=== PATIENT | male | born 1980 | race Caucasian/White ===

== ENCOUNTER 2016-10-03 12:19 | Emergency (ER) | payer SELFPAY ==
[~2016-10-03] VITALS: Ht 167.6 cm; Wt 54.4 kg
[2016-10-03] MEDS ORDERED: KETOROLAC 30 MG/ML VIAL IVP STA (12:55)
[2016-10-03] MEDS ORDERED: NS IV 1000 ML 1,000 ML IV STA (12:55)
[2016-10-03] MEDS ORDERED: fentaNYL INJECTION 100 MCG/2 ML AMP IVP STA (12:55)
[2016-10-03] MEDS ORDERED: ONDANSETRON 4 MG/2 ML (SDV) Z0FRAN IVP ONE (13:00)
[2016-10-03 13:07] LABS: KETONES,URINE 3+ (NEGATIVE); LEUKOCYTE ESTERASE ,URINE 1+ (NEGATIVE); NITRITE,URINE NEGATIVE (NEGATIVE); PH,URINE 5 (5-9); PROTEIN,URINE 2+ (NEGATIVE); UROBILINOGEN,URINE 1 MG/DL (NORMAL)
--- NOTE | 2016-10-03 13:13 | ED Abdominal Pain ---
General Chief Complaint: Abdominal/GI Problems Stated Complaint: L SIDE ABD PAIN Nursing Triage Note: PT STATES LLQ ABD PAIN SINCE THIS AM. STATES HE HAD TO BMs YESTERDAY, DENIES CONSITPATION OR DIARRHEA Sepsis Screen: No Definite Risk Source of Information: Patient Exam Limitations: No Limitations History of Present Illness Time Seen By Provider: 12:50 Initial Comments Here with report of lower abdominal pain that is left lower quadrant to suprapubic area. Onset this morning. Fairly significant and persistent since. He has not taken anything for the pain. Denies difficulty with bowel movement or urination. Denies blood in urine or stool. Timing/Duration: 4-6 Hours Severity/Quality: Moderate, Severe Location: LLQ, Suprapubic Radiation: No Radiation Activities at Onset: None Modifying Factors: Worsens With Movement, Improves With Resting Associated Symptoms: No Back Pain, No Chest Pain, No Fever/Chills, No Fatigue, Nausea/Vomiting, No Rash, No Shortness of Air, No Swelling/Mass in Abdomen, No Weakness Allergies and Home Medications Allergies Coded Allergies: No Known Drug Allergies (Unverified , 10/03/16) Review of Systems Constitutional: see HPI EENTM: No Symptoms Reported Respiratory: No Symptoms Reported Cardiovascular: No Symptoms Reported Gastrointestinal: See HPI, Nausea, Vomiting Genitourinary: No Symptoms Reported Musculoskeletal: no symptoms reported All Other Systems Reviewed Negative Unless Noted: Yes Past Qokltvc-Jpwcox-Minbce Hx Patient Social History Alcohol Use: Denies Use Recreational Drug Use: No Smoking Status: Light Tobacco Smoker Type Used: Smokeless Tobacco Recent Foreign Travel: No Contact w/Someone Who Travel: No Recent Infectious Disease Expo: No Recent Hopitalizations: No Seasonal Allergies Seasonal Allergies: No Surgeries HX Surgeries: No Respiratory Hx Respiratory Disorders: No Cardiovascular Hx Cardiac Disorders: No Neurological Hx Neurological Disorders: No Gastrointestinal Hx Gastrointestinal Disorders: No Musculoskeletal Hx Musculoskeletal Disorders: Yes Musculoskeletal Disorders: Scoliosis Psychosocial Hx Psychiatric Problems: Yes Behavioral Health Disorders: Bipolar Reviewed Nursing Assessment Reviewed/Agree w Nursing PMH: Yes Family Medical History Significant Family History: No Pertinent Family Hx Physical Exam Vital Signs VS - Last 72 Hours, by Label 10/03/16 12:43 Temp 97.9 Pulse 52 Resp 18 B/P (MAP) 150/101 Capillary Refill : Less Than 3 Seconds General Appearance: WD/WN, no apparent distress HEENT: PERRL/EOMI, pharynx normal Neck: full range of motion, supple Respiratory: lungs clear, normal breath sounds Cardiovascular: regular rate, rhythm, no murmur Gastrointestinal: soft, tenderness (left lower quadrant and suprapubic) Extremities: non-tender, normal inspection Back: normal inspection, no CVA tenderness, no vertebral tenderness Neurologic/Psychiatric: alert, oriented x 3 Skin: normal color, warm/dry Progress/Results/Core Measures Results/Orders Lab Results Laboratory Tests Test 10/03/16 12:59 10/03/16 13:09 Range/Units Urine Color YELLOW Urine Clarity CLEAR Urine pH 5 5-9 Urine Specific [place] 1.030 H 1.016-1.022 Urine Protein 2+ H NEGATIVE Urine Glucose (UA) NEGATIVE NEGATIVE Urine Ketones 3+ H NEGATIVE Urine Nitrite NEGATIVE NEGATIVE Urine Bilirubin 1+ H NEGATIVE Urine Urobilinogen 1 NORMAL MG/DL Urine Leukocyte Esterase 1+ H NEGATIVE Urine RBC (Auto) 4+ H NEGATIVE Urine RBC 0-2 /HPF Urine WBC 2-5 /HPF Urine Squamous Epithelial Cells NONE /HPF Urine Crystals NONE /LPF Urine Bacteria TRACE /HPF Urine Casts NONE /LPF Urine Mucus LARGE H /LPF Urine Culture Indicated NO White Blood Count 17.0 H 4.3-11.0 10^3/uL Red Blood Count 4.44 4.35-5.85 10^6/uL Hemoglobin 13.3 13.3-17.7 G/DL Hematocrit 40 40-54 % Mean Corpuscular Volume 90 80-99 FL Mean Corpuscular Hemoglobin 30 25-34 PG Mean Corpuscular Hemoglobin Concent 33 32-36 G/DL Red Cell Distribution Width 12.8 10.0-14.5 % Platelet Count 322 130-400 10^3/uL Mean Platelet Volume 10.3 7.4-10.4 FL Neutrophils (%) (Auto) 91 H 42-75 % Lymphocytes (%) (Auto) 5 L 12-44 % Monocytes (%) (Auto) 5 0-12 % Eosinophils (%) (Auto) 0 0-10 % Basophils (%) (Auto) 0 0-10 % Neutrophils # (Auto) 15.5 H 1.8-7.8 X 10^3 Lymphocytes # (Auto) 0.8 L 1.0-4.0 X 10^3 Monocytes # (Auto) 0.8 0.0-1.0 X 10^3 Eosinophils # (Auto) 0.0 0.0-0.3 10^3/uL Basophils # (Auto) 0.0 0.0-0.1 10^3/uL Neutrophils % (Manual) 94 % Lymphocytes % (Manual) 3 % Monocytes % (Manual) 3 % Blood Morphology Comment NORMAL Sodium Level 141 135-145 MMOL/L Potassium Level 3.8 3.6-5.0 MMOL/L Chloride Level 105 98-107 MMOL/L Carbon Dioxide Level 24 21-32 MMOL/L Anion Gap 12 5-14 MMOL/L Blood Urea Nitrogen 14 7-18 MG/DL Creatinine 1.10 0.60-1.30 MG/DL Estimat Glomerular Filtration Rate > 60 BUN/Creatinine Ratio 13 Glucose Level 125 H 70-105 MG/DL Calcium Level 9.7 8.5-10.1 MG/DL Total Bilirubin 0.9 0.1-1.0 MG/DL Aspartate Amino Transf (AST/SGOT) 17 5-34 U/L Alanine Aminotransferase (ALT/SGPT) 9 0-55 U/L Alkaline Phosphatase 67 40-136 U/L Total Protein 8.0 6.4-8.2 GM/DL Albumin 4.7 H 3.2-4.5 GM/DL My Orders Orders - REMINGTON QUICK MD Cbc With Automated Diff (10/03/16 12:55) Comprehensive Metabolic Panel (10/03/16 12:55) Ua Culture If Indicated (10/03/16 12:55) Ondansetron Injection (Zofran Injectio (10/03/16 13:00) Ns Iv 1000 Ml (Sodium Chloride 0.9%) (10/03/16 12:55) Saline Lock/Iv-Start (10/03/16 12:55) Fentanyl Injection (Sublimaze Injection (10/03/16 12:55) Ketorolac Injection (Toradol Injection) (10/03/16 12:55) Manual Differential (10/03/16 13:09) Ct Abd/Pelv W (Appendicitis) (10/03/16 13:42) Ns Iv 1000 Ml (Sodium Chloride 0.9%) (10/03/16 13:43) Iohexol Injection (Omnipaque 350 Mg/Ml 1 (10/03/16 14:00) Ns (Ivpb) (Sodium Chloride 0.9% Ivpb Bag (10/03/16 14:00) Medications Given in ED Current Medications Medications Dose Ordered Sig/Jose Route Start Time Stop Time Status Last Admin Dose Admin Iohexol 100 ml ONCE ONCE IV 10/03/16 14:00 10/03/16 14:01 DC 10/03/16 13:53 100 ML Ondansetron HCl 4 mg ONCE ONCE IVP 10/03/16 13:00 10/03/16 13:01 DC 10/03/16 13:06 4 MG Sodium Chloride 100 ml ONCE ONCE IV 10/03/16 14:00 10/03/16 14:01 DC 10/03/16 13:53 80 ML Sodium Chloride 1,000 ml @ 0 mls/hr Q0M ONCE IV 10/03/16 13:43 10/03/16 13:44 DC 10/03/16 13:49 999 MLS/HR Vital Signs/I&O Vital Sign - Last 12Hours 10/03/16 12:43 Temp 97.9 Pulse 52 Resp 18 B/P (MAP) 150/101 Blood Pressure Mean: 117 Progress Note : Progress Note Seen and evaluated. IV, labs and UA ordered. Normal saline 1 L bolus. Fentanyl 50 g IV, Toradol 30 mg IV and Zofran 4 mg IV ordered. Anticipate CT. CT abdomen pelvis appendicitis protocol ordered due to elevated white count. Monitor patient. Repeat normal saline 1 L bolus due to significant number ketones in the urine. 1445: Overall much improved. There is a question of possible kidney stone at the ureteral vesicular junction although not clearly defined on CT scan. Given his findings and presentation, he will be treated as such. This should clear well without difficulty given its size though. Discharged home with return precautions. Patient verbalize understanding instructions and agreement with plan. Diagnostic Imaging Diagonstic Imaging: CT Plain Films/CT/US/NM/MRI: abdomen, pelvis Comments VIA [facility]. [place], [place] NAME: MOLLY BYRNE Mahesh [facility] REC#: [id number] PT STATUS: REG ER : 1980 PHYSICIAN: REMINGTON QUICK MD ADMIT DATE: 10/03/16/ER Draft Date of Exam:10/03/16 CT ABD/PELV W (APPENDICITIS) PROCEDURE: CT abdomen and pelvis with contrast, rule out appendicitis. TECHNIQUE: Multiple contiguous axial images were obtained through the abdomen and pelvis after the administration of intravenous contrast. INDICATION: Left lower quadrant pain. There are no prior studies available for comparison. FINDINGS: There is no pelvic mass or free fluid collection to account for the patient's left lower quadrant pain. The urinary bladder and prostate gland are grossly unremarkable. Both kidneys do show excretion of the contrast and there is no sign of obstruction of either collecting system. There is some irregularity of the cortex of the superior pole of the right kidney. This could be a sequela of prior episode of pyelonephritis. The appendix was not particularly well visualized but there are no indirect signs of acute appendicitis. There are a few fluid-filled segments of small bowel. These are nonspecific. The liver, spleen, pancreas, adrenals, gallbladder, aorta and inferior vena cava show no sign of an acute abnormality. The stomach is partially filled with fluid and consequently difficult to assess. The lung bases are clear. The bone windows show no evidence for a fracture or for a destructive lesion. IMPRESSION: 1. There is no acute abnormality of the abdomen or pelvis. 2. The irregular appearance of the renal cortex of the superior pole of the right kidney could be a sequela of prior episode of pyelonephritis. Clinical followup is recommended. Dictated on workstation # [id number] Dict: 10/03/16 1408 Trans: 10/03/16 1418 [facility] [id number] Interpreted by: MATILDE UP MD Electronically signed by: Reviewed: Reviewed by Me Departure Impression Impression: Primary Impression: Kidney stone Additional Impression: Abdominal pain, left lower quadrant Disposition: 01 HOME, SELF-CARE Condition: Improved Departure-Patient Inst. Decision time for Depature: 14:47 Referrals: NO,LOCAL PHYSICIAN (PCP/Family) Primary Care Physician Patient Instructions: Renal Colic (DC), Acute Abdomen (Belly Pain), Adult (DC) Add. Discharge Instructions: All discharge instructions reviewed with patient and/or family. Voiced understanding. Take medications as directed. Follow-up with your DrCarrol in a few days for recheck. Return for worse pain, fever, vomiting, weakness, breathing problems or other concerns as needed. You may take ibuprofen 600 mg every 8 hours as needed for pain as well. Drink plenty of fluids and drink fluids. Eat a normal diet. Scripts Hydrocodone/Acetaminophen (Hydrocodon -Acetaminophen 5-325) 1 Each Tablet 1-2 EACH PO Q6H Y for PAIN-MODERATE, #12 TAB 0 Refills Prov: REMINGTON QUICK MD 10/03/16 Cephalexin (Cephalexin) 500 Mg Tablet 500 MG PO BID, #2014 TAB 0 Refills Prov: REMINGTON QUICK MD 10/03/16 REMINGTON QUICK MD Oct 03, 2016 13:13
[2016-10-03 13:19] LABS: BILIRUBIN,URINE 1+ (NEGATIVE)
[2016-10-03 13:22] LABS: BASOPHILS % (AUTO) 0 % (0-10); EOSINOPHILS % (AUTO) 0 % (0-10); LYMPHOCYTES # (AUTO) 0.8 X 10^3 (1.0-4.0); LYMPHOCYTES % (AUTO) 5 % (12-44); MEAN CORPUSCULAR HEMOGLOBIN 30 PG (25-34); MEAN CORPUSCULAR HGB CONC 33 G/DL (32-36); MEAN CORPUSCULAR VOLUME 90 FL (80-99); MEAN PLATELET VOLUME 10.3 FL (7.4-10.4); MONOCYTES # (AUTO) 0.8 X 10^3 (0.0-1.0); MONOCYTES % (AUTO) 5 % (0-12); NEUTROPHILS # (AUTO) 15.5 X 10^3 (1.8-7.8); NEUTROPHILS % (AUTO) 91 % (42-75); PLATELET COUNT 322 10^3/uL (130-400); RED BLOOD COUNT 4.44 10^6/uL (4.35-5.85); RED CELL DISTRIBUTION WIDTH 12.8 % (10.0-14.5)
[2016-10-03] MEDS ORDERED: NS IV 1000 ML 1,000 ML IV ONE (13:43)
[2016-10-03 13:51] LABS: ALANINE AMINOTRANSFERASE 9 U/L (0-55); ALBUMIN 4.7 GM/DL (3.2-4.5); ANION GAP 12 MMOL/L (5-14); ASPARTATE AMINO TRANSFERASE 17 U/L (5-34); BILIRUBIN,TOTAL 0.9 MG/DL (0.1-1.0); BLOOD UREA NITROGEN 14 MG/DL (7-18); BUN/CREATININE RATIO 13; CALCIUM 9.7 MG/DL (8.5-10.1); CARBON DIOXIDE 24 MMOL/L (21-32); CHLORIDE 105 MMOL/L (98-107); GFR ESTIMATED > 60; GLUCOSE 125 MG/DL (70-105); POTASSIUM 3.8 MMOL/L (3.6-5.0); SODIUM 141 MMOL/L (135-145)
[2016-10-03] MEDS ORDERED: NS 100 ML (IVPB) BAG IV ONE (14:00)
[2016-10-03] MEDS ORDERED: IOHEXOL 350 MG/ML 100 ML (OMNIPAQUE 350) VIAL IV ONE (14:00)
--- NOTE | 2016-10-03 14:19 | Diagnostic Imaging Report ---
PROCEDURE: CT abdomen and pelvis with contrast, rule out appendicitis. TECHNIQUE: Multiple contiguous axial images were obtained through the abdomen and pelvis after the administration of intravenous contrast. INDICATION: Left lower quadrant pain. There are no prior studies available for comparison. FINDINGS: There is no pelvic mass or free fluid collection to account for the patient's left lower quadrant pain. The urinary bladder and prostate gland are grossly unremarkable. Both kidneys do show excretion of the contrast and there is no sign of obstruction of either collecting system. There is some irregularity of the cortex of the superior pole of the right kidney. This could be a sequela of prior episode of pyelonephritis. The appendix was not particularly well visualized but there are no indirect signs of acute appendicitis. There are a few fluid-filled segments of small bowel. These are nonspecific. The liver, spleen, pancreas, adrenals, gallbladder, aorta and inferior vena cava show no sign of an acute abnormality. The stomach is partially filled with fluid and consequently difficult to assess. The lung bases are clear. The bone windows show no evidence for a fracture or for a destructive lesion. IMPRESSION: 1. There is no acute abnormality of the abdomen or pelvis. 2. The irregular appearance of the renal cortex of the superior pole of the right kidney could be a sequela of prior episode of pyelonephritis. Clinical followup is recommended. Dictated by: Dictated on workstation # [id number]
[2016-10-03 14:37] LABS: LYMPHOCYTES % (MANUAL) 3 %; NEUTROPHILS % (MANUAL) 94 %
[2016-10-03] MEDS ORDERED: CEPH500T PO (14:50)
[2016-10-03] MEDS ORDERED: HYDR-3812 PO (14:50)
[2016-10-03 14:55] VITALS: BP 100/67
--- OUTSIDE RECORDS SUMMARY | 2016-10-05 11:28 | XMS REPORT | Continuity of Care Document ---
Author Author [facility] Address Unknown Phone Unavailable Allergies Medications Problems Date Dx Coded Attending Type Code Diagnosis Diagnosed By 05/04/2011 TRAE MARIE MD 783.22 feeling underweight 05/04/2011 ESPINOZA DOCARMENZA K 783.22 feeling underweight 05/04/2011 ESPINOZA DOOMAIRAA K 783.22 feeling underweight 05/04/2011 ESPINOZA OMAIRA TERRYA K 783.22 feeling underweight 02/11/2012 RTAE MARIE MD 379.91 eye pain 02/11/2012 ESPINOZA DOOMAIRAA Anabela 379.91 eye pain 02/11/2012 ESPINOZA DOOMAIRAA K 379.91 eye pain 02/11/2012 EPSINOZA DOOMAIRAA K 379.91 eye pain 02/12/2013 ESPINOZA DO CARMENZA K 847.1 SPRAIN THORACIC REGION 02/12/2013 ESPINOZA DO CARMENZA K 847.1 SPRAIN THORACIC REGION 02/12/2013 ESPINOZA DO CARMENZA K 847.1 SPRAIN THORACIC REGION 05/07/2013 OMAIRA ESPINOZA DOA K 009.1 GASTROENTERITIS, ACUTE INFECTIOUS Procedures Code [place] [address] XRAY THORACIC SPINE 3 VIEWS 03/07/2013 Results Encounters ACCT No. Visit Date/Time Discharge Status Pt. Type Provider Facility Loc./Unit Complaint [id number] 05/07/2013 08:54:00 05/07/2013 23: 59:59 CLS Outpatient OMAIRA ESPINOZA DOA Anabela [id number] 03/06/2013 11:26:00 03/06/2013 23: 59:59 CLS Outpatient CARMENZA ESPINOZA DO [id number] 02/12/2013 17:38:00 02/12/2013 23: 59:59 CLS Outpatient [id number] 02/11/2012 15:33:21 02/11/2012 23: 59:59 CLS Outpatient TRAE MARIE MD
== END 2016-10-03 14:59 | disposition home or self-care (01) ==
LOC: ER 12:23
DX: N20.0 Calculus of kidney; F17.290 Nicotine dependence, other tobacco product, uncomplicated; F31.9 Bipolar disorder, unspecified
CPT/HCPCS: 36415; 74177; 80053; 81000; 85007; 85027; 96361; 96374; 96375